=== PATIENT | male | born 1960 | race Caucasian/White ===

== ENCOUNTER 2018-02-18 03:36 | Observation (INO) | payer BC ==
[2018-02-18] MEDS ORDERED: ASPIRIN 81 MG TABLET, CHEWABLE PO ONE (03:48)
[2018-02-18 04:08] LABS: ABSOLUTE BASOPHILS # (AUTO) 0.1 10^3/uL (0.0-0.2); ABSOLUTE EOSINOPHILS # (AUTO) 0.2 10^3/uL (0.0-0.6); ABSOLUTE LYMPHOCYTES (AUTO) 1.8 10^3/uL (0.5-4.7); ABSOLUTE MONOCYTES (AUTO) 0.8 10^3/uL (0.1-1.4); EOSINOPHILS % (AUTO) 2.2 % (0-6); HEMATOCRIT 47.8 % (37.9-51.0); HEMOGLOBIN 16.7 g/dL (13.5-17.0); LYMPHOCYTES % (AUTO) 18.3 % (13-45); MEAN CORPUSCULAR HEMOGLOBIN 31.8 pg (27.0-33.4); MEAN CORPUSCULAR VOLUME 91 fl (80-97); MONOCYTES % (AUTO) 7.7 % (3-13); PLATELET COUNT 309 10^3/uL (150-450); RED BLOOD COUNT 5.26 10^6/uL (4.35-5.55); RED CELL DISTRIBUTION WIDTH 14.2 % (11.5-14.0); SEGMENTED NEUTROPHILS % (AUTO) 70.8 % (42-78); TOTAL CELLS COUNTED % (AUTO) 100 %; WHITE BLOOD COUNT 9.9 10^3/uL (4.0-10.5)
[2018-02-18 04:17] LABS: INTERNATIONAL RATION (INR) 0.97; PROTHROMBIN TIME 13.4 SEC (11.4-15.4)
[2018-02-18 04:28] LABS: ALANINE AMINOTRANSFERASE 33 U/L (21-72); ALBUMIN 4.2 g/dL (3.5-5.0); ALKALINE PHOSPHATASE 90 U/L (38-126); ANION GAP 9 (5-19); ASPARTATE AMINO TRANSFERASE 19 U/L (17-59); BILIRUBIN,DIRECT 0.3 mg/dL (0.0-0.4); BILIRUBIN,TOTAL 0.6 mg/dL (0.2-1.3); BLOOD UREA NITROGEN 7 mg/dL (7-20); CARBON DIOXIDE 25 mmol/L (22-30); CHLORIDE 106 mmol/L (98-107); CREATINE KINASE 49 U/L (55-170); GLUCOSE 133 mg/dL (75-110); POTASSIUM 4.6 mmol/L (3.6-5.0); SODIUM 140.1 mmol/L (137-145)
[2018-02-18 04:40] LABS: CREATINE KINASE MB 0.98 ng/mL (<4.55)
[2018-02-18 04:45] LABS: TROPONIN I < 0.012 ng/mL
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
--- NOTE | 2018-02-18 04:55 | RADIOLOGY REPORT (SQ) ---
EXAM DESCRIPTION: XR CHEST 1 VIEW COMPLETED DATE/TME: 02/18/2018 03:48 CLINICAL HISTORY: 57 years Male, cp COMPARISON: None. NUMBER OF VIEWS/TECHNIQUE: 1/AP FINDINGS: Adequate lung volume, clear parenchyma, normal cardiac silhouette, and intact bony thorax. IMPRESSION: No acute cardiopulmonary findings.
[2018-02-18] MEDS ORDERED: LOSARTAN POTASSIUM 50 MG TABLET PO ONE (06:37)
[2018-02-18] MEDS ORDERED: NITROGLYCERIN 0.4 MG/TAB 25 TAB/BOTTLE SL PRN (06:37)
[2018-02-18] MEDS ORDERED: MAG HYDROX/AL HYDROX/SIMETH SUSP 30 ML UDCUP PO PRN (06:37)
[2018-02-18] MEDS ORDERED: ACETAMINOPHEN 325 MG TABLET PO PRN (06:39)
[2018-02-18] MEDS ORDERED: KETOROLAC TROMETHAMINE INJ/PF 30 MG/1 ML SDV IV PRN (06:39)
[2018-02-18] MEDS ORDERED: ATORVASTATIN CALCIUM 80 MG TABLET PO ONE (06:45)
[2018-02-18] MEDS ORDERED: TRAZODONE HCL 50 MG TABLET PO PRN (06:59)
--- NOTE | 2018-02-18 07:19 | PDOC H&P ---
History of Present Illness Patient complains of: Chest pain History of Present Illness: BRAEDEN MENSAH JR is a 57 year old with a past medical history of brain aneurysm without subsequent deficit, hypertension and tobacco. Patient presents with nausea, vomiting, diaphoresis and palpitations occurring at rest. Patient admits to major recent social stressor preceding symptoms. In the emergency room he is without symptoms but tearful, EKG reveals anterior lateral T wave inversion and uncontrolled hypertension. He is referred to the hospitalist for evaluation. Patient denies recent use of medications. Past Medical History Cardiac Medical History: Reports: Hypertension - DX TWO MONTHS AGO Psychiatric Medical History: Reports: Tobacco Dependency Past Surgical History Past Surgical History: Reports: Tonsillectomy, Other - Status post brain aneurysm repair Social History Information Source: Patient, [facility] Records Lives with: Family Smoking Status: Current Every Day Smoker Frequency of Alcohol Use: None Drugs: None - Advance Directive Resuscitation Status: Full Code Family History Family History: CAD Parental Family History Reviewed: Yes Children Family History Reviewed: Yes Sibling(s) Family History Reviewed.: Yes Medication/Allergy Home Medications: Aspirin 04/06/11 Borage Oil 04/06/11 Fish Oil 04/06/11 Flaxseed 04/06/11 Hydrochlorothiazide 04/06/11 Lipitor 20 mg Tablet 04/06/11 Conrad 3-6-9 1,200 mg Softgel 04/06/11 Allergies/Adverse Reactions: SULPHUR Allergy (Uncoded 02/18/18 04:03) Review of Systems Constitutional: ABSENT: chills, fever(s), headache(s), weight gain, weight loss Eyes: ABSENT: visual disturbances Ears: ABSENT: hearing changes Cardiovascular: ABSENT: chest pain, dyspnea on exertion, edema, orthropnea, palpitations Respiratory: ABSENT: cough, hemoptysis Gastrointestinal: ABSENT: abdominal pain, constipation, diarrhea, hematemesis, hematochezia, nausea, vomiting Genitourinary: ABSENT: dysuria, hematuria Musculoskeletal: ABSENT: joint swelling Integumentary: ABSENT: rash, wounds Neurological: ABSENT: abnormal gait, abnormal speech, confusion, dizziness, focal weakness, syncope Psychiatric: ABSENT: anxiety, depression, homidical ideation, suicidal ideation Endocrine: ABSENT: cold intolerance, heat intolerance, polydipsia, polyuria Hematologic/Lymphatic: ABSENT: easy bleeding, easy bruising Physical Exam Vital Signs: Temp Pulse Resp BP Pulse Ox 97.9 F 87 20 169/105 H 98 02/18/18 03:48 02/18/18 03:48 02/18/18 03:48 02/18/18 03:48 02/18/18 03:50 Intake & Output 02/16/18 02/17/18 02/18/18 11:59 11:59 11:59 Weight 87 kg General appearance: PRESENT: no acute distress, well-developed, well-nourished Head exam: PRESENT: atraumatic, normocephalic Eye exam: PRESENT: conjunctiva pink, EOMI, PERRLA. ABSENT: scleral icterus Ear exam: PRESENT: normal external ear exam Mouth exam: PRESENT: moist, tongue midline Neck exam: ABSENT: carotid bruit, JVD, lymphadenopathy, thyromegaly Respiratory exam: PRESENT: clear to auscultation jay. ABSENT: rales, rhonchi, wheezes Cardiovascular exam: PRESENT: RRR. ABSENT: diastolic murmur, rubs, systolic murmur Pulses: PRESENT: normal dorsalis pedis pul Vascular exam: PRESENT: normal capillary refill GI/Abdominal exam: PRESENT: normal bowel sounds, soft. ABSENT: distended, guarding, mass, organolmegaly, rebound, tenderness Rectal exam: PRESENT: deferred Extremities exam: PRESENT: full ROM. ABSENT: calf tenderness, clubbing, pedal edema Neurological exam: PRESENT: alert, awake, oriented to person, oriented to place , oriented to time, oriented to situation, CN II-XII grossly intact. ABSENT: motor sensory deficit Psychiatric exam: PRESENT: appropriate affect, normal mood. ABSENT: homicidal ideation, suicidal ideation Skin exam: PRESENT: dry, intact, warm. ABSENT: cyanosis, rash Results Laboratory Results: 02/18/18 03:49 02/18/18 03:49 02/18/18 02/18/18 03:49 03:49 WBC 9.9 RBC 5.26 Hgb 16.7 Hct 47.8 MCV 91 MCH 31.8 MCHC 35.0 RDW 14.2 H Plt Count 309 Seg Neutrophils % 70.8 Lymphocytes % 18.3 Monocytes % 7.7 Eosinophils % 2.2 Basophils % 1.0 Absolute Neutrophils 7.0 Absolute Lymphocytes 1.8 Absolute Monocytes 0.8 Absolute Eosinophils 0.2 Absolute Basophils 0.1 Sodium 140.1 Potassium 4.6 Chloride 106 Carbon Dioxide 25 Anion Gap 9 BUN 7 Creatinine 0.79 Est GFR ( Amer) > 60 Est GFR (Non-Af Amer) > 60 Glucose 133 H Calcium 10.0 Total Bilirubin 0.6 AST 19 ALT 33 Alkaline Phosphatase 90 Total Protein 7.0 Albumin 4.2 02/18/18 02/18/18 03:49 03:49 Creatine Kinase 49 L CK-MB (CK-2) 0.98 Troponin I < 0.012 Impressions: Chest X-Ray 02/18/18 03:48 IMPRESSION: No acute cardiopulmonary findings. Assessment & Plan - Diagnosis (1) Atypical chest pain Is this a current diagnosis for this admission?: Yes Plan: Atypical chest pain though the patient's pain is atypical there are multiple risk factors for coronary artery disease and subsequently will observe and evaluation of acute coronary syndrome versus coronary artery disease with anginal equivalents. Cardiac monitoring blood pressure Q6 hours ,TSH, lipid profile, serial cardiac enzymes and cardiac stress test (2) Hypertension Is this a current diagnosis for this admission?: Yes Plan: Vu (3) Tobacco abuse Is this a current diagnosis for this admission?: Yes Plan: Tobacco Dependence patient received tobacco cessation counseling and offered nicotine replacement options (4) Adjustment disorder Is this a current diagnosis for this admission?: Yes Plan: Trazodone trial, outpatient counseling - Time Time Spent: 30 to 50 Minutes - Inpatient Certification Medical Necessity: Need Close Monitoring Due to Risk of Patient Decompensation
--- NOTE | 2018-02-18 07:51 | EKG REPORT ---
SEVERITY:- ABNORMAL ECG - SINUS RHYTHM NONSPECIFIC T ABNORMALITIES, LATERAL LEADS : Confirmed by: Owen Palacios MD 18-Feb-2018 07:51:05
--- NOTE | 2018-02-18 07:52 | EKG REPORT ---
SEVERITY:- ABNORMAL ECG - SINUS RHYTHM BORDERLINE INFERIOR Q WAVES ABNRM R PROG, CONSIDER ASMI OR LEAD PLACEMENT ABNORMAL T, CONSIDER ISCHEMIA, LATERAL LEADS : Confirmed by: Owen Palacios MD 18-Feb-2018 07:51:24
[2018-02-18 10:59] LABS: CREATINE KINASE MB 0.91 ng/mL (<4.55); TROPONIN I < 0.012 ng/mL
[2018-02-18] MEDS ORDERED: HEPARIN SOD (PORCINE) 5,000 UNIT/ML 1 ML SYRINGE SUBCUT SCH (14:00)
[2018-02-18 16:36] VITALS: BP 137/84
[2018-02-18 16:52] LABS: CREATINE KINASE MB 0.74 ng/mL (<4.55)
[2018-02-18 17:02] LABS: TROPONIN I < 0.012 ng/mL
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
[2018-02-18] MEDS ORDERED: ATORVASTATIN CALCIUM 80 MG TABLET PO SCH (22:00)
== END 2018-02-18 19:04 | disposition home or self-care (01) ==
LOC: ER 03:36 → INTOOBSV 06:45 → EH 06:45 → 5 08:35
PROVIDERS: ADMIT Internal Medicine; ATTEND Internal Medicine
DX: R07.89 Other chest pain (principal); R11.2 Nausea with vomiting, unspecified; R61 Generalized hyperhidrosis; R00.2 Palpitations; I10 Essential (primary) hypertension; F17.210 Nicotine dependence, cigarettes, uncomplicated; F43.20 Adjustment disorder, unspecified; M79.622 Pain in left upper arm; Z86.79 Personal history of other diseases of the circulatory system; Z79.82 Long term (current) use of aspirin; Z98.890 Other specified postprocedural states; Z82.49 Family history of ischemic heart disease and other diseases of the circulatory system
CPT/HCPCS: 93005; 99285; 36415; 82553; 82550; 84443; 85025; 85610; 80053; 84484; 71045; 93010; J1644; J3490; G0378